=== PATIENT | male | born 1990 | race African-American/Black ===

== ENCOUNTER 2022-08-14 21:56 | Emergency (ER) | payer BC ==
[~2022-08-14] VITALS: Ht 185.4 cm; Wt 119.0 kg
[2022-08-14 22:05] VITALS: TEMP 98.6; O2SAT 98
[2022-08-14 22:28] VITALS: BP 147/86; PULSE 89; RESP 16
[2022-08-14] MEDS ORDERED: HYDROCODONE/ACETAMINOPHEN 5/325MG TABLET PO STA (22:28)
[2022-08-14] MEDS ORDERED: LIDOCAINE HCL/EPINEPHRINE 1%-EPI 1:100,000 20 ML VIAL INFIL ONE (22:30)
[2022-08-14] MEDS ORDERED: BACITRACIN ZINC OINT UDPKT TOP ONE (22:30)
[2022-08-14] MEDS ORDERED: ONDANSETRON 4MG ODT PO STA (23:43)
[2022-08-15] MEDS ORDERED: NAPR-681 PO (00:36)
[2022-08-15] MEDS ORDERED: T3 PO (00:36)
[2022-08-15] MEDS ORDERED: CEPH500C2 PO (00:36)
== END 2022-08-15 02:04 | disposition home or self-care (01) ==
LOC: ER 21:56 → EDBD 21:56 → ER 08-15 02:04
DX: S01.511A Laceration without foreign body of lip, initial encounter (principal); Z91.030 Bee allergy status; W18.30XA Fall on same level, unspecified, initial encounter; Y93.89 Activity, other specified; Y92.89 Other specified places as the place of occurrence of the external cause; Y99.8 Other external cause status
CPT/HCPCS: 70450; 70486; 12013; 99284; Z7610; J3490